=== PATIENT | female | born 1990 | race Caucasian/White ===

== ENCOUNTER → 2018-07-22 | Outpatient (CLI) | payer OTHER | END | disposition home or self-care (01) | LOC: CFH 13:45 | PROVIDERS: ATTEND Obstetrics & Gynecology | DX: Z34.02 Encounter for supervision of normal first pregnancy, second trimester (principal); N63.13 Unspecified lump in the right breast, lower outer quadrant ==

== ENCOUNTER → 2018-07-31 | Outpatient (CLI) | payer OTHER ==
[~2018-07-31] MED LIST: LIDOCAINE 1%, 20ML ONE; LIDOCAINE 1%-EPI 1:100K, 20ML ONE; PREN1TAB69 PO; SODIUM BICARBONATE 4.0%, 5ML ONE
== END | disposition home or self-care (01) ==
LOC: CFH 09:21
PROVIDERS: ATTEND Obstetrics & Gynecology
DX: D24.1 Benign neoplasm of right breast (principal)
CPT/HCPCS: 19083; 88305; J3490

== ENCOUNTER 2018-08-07 11:17 | Inpatient (IN) | payer OTHER ==
[~2018-08-07] VITALS: Ht 149.9 cm; Wt 50.0 kg
[2018-08-07] MEDS ORDERED: PREN1TAB69 PO (11:35)
[2018-08-07] MEDS ORDERED: METOCLOPRAMIDE 5 MG/ML, 2ML IVPush ONE (12:00)
[2018-08-07] MEDS ORDERED: SODIUM CITRATE/CITRIC ACID 30 ML UDC PO ONE (12:00)
[2018-08-07 12:02] LABS: BASOPHILS # (AUTO) 0.07 x10^3/uL (0-0.1); BASOPHILS % (AUTO) 1 % (0-1); EOSINOPHILS # (AUTO) 0.03 x10^3/uL (0-0.4); EOSINOPHILS % (AUTO) 0 % (1-7); LYMPHOCYTES # (AUTO) 1.61 x10^3/uL (1-3.4); LYMPHOCYTES % (AUTO) 14 % (22-44); MD NO; MEAN CORPUSCULAR HEMOGLOBIN 35.2 pg (27.0-34.8); MEAN CORPUSCULAR VOLUME 100.4 fL (80-100); MEAN PLATELET VOLUME 6.7 fL (7.4-10.4); MONOCYTES # (AUTO) 0.61 x10^3/uL (0.2-0.8); MONOCYTES % (AUTO) 5 % (2-9); NEUTROPHILS # (AUTO) 8.96 x10^3/uL (1.8-6.8); NEUTROPHILS % (AUTO) 80 % (42-75); PLATELET COUNT 343 x10^3/uL (130-400); RED BLOOD COUNT 3.39 x10^6/uL (3.82-5.3); RED CELL DISTRIBUTION WIDTH 12.4 % (9.6-15.2)
[2018-08-07] MEDS ORDERED: INDOMETHACIN 50 MG CAPSULE ONE (12:29)
[2018-08-07] MEDS ORDERED: INDOMETHACIN 50 MG CAPSULE PO SCH (12:30)
[2018-08-07] MEDS: LACTATED RINGERS 1,000 ML IV SCH ×2 (12:45→14:22)
[2018-08-07] MEDS ORDERED: MAGNESIUM SULF. PMX 20GM/500ML 500 ML IV ONE ×2 (13:44→22:26)
[2018-08-07] MEDS ORDERED: MAGNESIUM SULFATE PMX 4GM/100M 100 ML IVPB ONE (14:00)
[2018-08-07] MEDS: MAGNESIUM SULF. PMX 20GM/500ML 500 ML IV SCH ×2 (14:19→22:30)
[2018-08-07] MEDS ORDERED: INDOMETHACIN 25 MG CAPSULE ONE (19:20)
[2018-08-07] MEDS: INDOMETHACIN 25 MG CAPSULE PO SCH (19:28)
[2018-08-07] MEDS ORDERED: ONDANSETRON ODT 4 MG ONE (21:10)
[2018-08-07] MEDS: AMPICILLIN 2 GM in SODIUM CHLORIDE 0.9% 100 ML IV SCH (21:56)
[2018-08-07] MEDS ORDERED: AZITHROMYCIN 500 MG in SODIUM CHLORIDE 0.9% 250 ML IV ONE (22:00)
[2018-08-07 23:44] VITALS: BP 101/58
[2018-08-08] MEDS ORDERED: INDOMETHACIN 25 MG CAPSULE ONE ×5 (00:57→20:01)
[2018-08-08] MEDS: INDOMETHACIN 25 MG CAPSULE PO SCH ×5 (01:19→20:04)
[2018-08-08] MEDS: LACTATED RINGERS 1,000 ML IV SCH ×2 (02:05→16:28)
[2018-08-08] MEDS: AMPICILLIN 2 GM in SODIUM CHLORIDE 0.9% 100 ML IV SCH ×4 (03:36→21:57)
[2018-08-08 03:43] VITALS: BP 98/54
[2018-08-08] MEDS ORDERED: ONDANSETRON 2MG/ML, 2ML IVPush PRN (08:00)
[2018-08-08] MEDS ORDERED: METOCLOPRAMIDE 5 MG/ML, 2ML IVPush PRN (08:30)
[2018-08-08] MEDS: MAGNESIUM SULF. PMX 20GM/500ML 500 ML IV SCH ×2 (09:48→10:01)
[2018-08-08] MEDS ORDERED: MAGNESIUM SULF. PMX 20GM/500ML 500 ML IV ONE (09:59)
[2018-08-08] MEDS ORDERED: AZITHROMYCIN 500 MG in SODIUM CHLORIDE 0.9% 250 ML IV ONE (16:00)
[2018-08-08] MEDS ORDERED: FENTANYL PF 100 MCG/2ML ONE (16:16)
[2018-08-08] MEDS ORDERED: SODIUM CITRATE/CITRIC ACID 30 ML UDC ONE (16:29)
[2018-08-08] MEDS ORDERED: METOCLOPRAMIDE 5 MG/ML, 2ML ONE (16:30)
[2018-08-08] MEDS ORDERED: MIDAZOLAM 1 MG/ML, 5ML ONE (17:52)
[2018-08-08] MEDS ORDERED: DIPHENHYDRAMINE 50 MG/ML, 1ML ONE (18:42)
[2018-08-09] MEDS: LACTATED RINGERS 1,000 ML IV SCH ×3 (03:01→20:00)
[2018-08-09] MEDS: INDOMETHACIN 50 MG CAPSULE PO SCH ×3 (03:27→21:12)
[2018-08-09] MEDS: AMPICILLIN 2 GM in SODIUM CHLORIDE 0.9% 100 ML IV SCH ×4 (03:55→22:05)
[2018-08-09] MEDS ORDERED: MAGNESIUM SULF. PMX 20GM/500ML 500 ML IV ONE (05:12)
[2018-08-09] MEDS: MAGNESIUM SULF. PMX 20GM/500ML 500 ML IV SCH (05:18)
[2018-08-09] MEDS ORDERED: PRENATAL VIT/IRON/FA 1 EACH TABLET ONE (07:28)
[2018-08-09] MEDS ORDERED: DOCUSATE 100 MG CAPSULE ONE ×2 (07:28→21:10)
[2018-08-09] MEDS: DOCUSATE 100 MG CAPSULE PO SCH ×2 (08:00→21:12)
[2018-08-09] MEDS ORDERED: AZITHROMYCIN 500 MG in SODIUM CHLORIDE 0.9% 250 ML IV SCH (08:00)
[2018-08-09] MEDS: PRENATAL VIT/IRON/FA 1 EACH TABLET PO SCH (08:00)
[2018-08-09] MEDS ORDERED: INDOMETHACIN 50 MG CAPSULE ONE ×2 (12:08→21:10)
[2018-08-09] MEDS ORDERED: AZITHROMYCIN 500 MG in DEXTROSE 5% 250 ML IV SCH (17:00)
[2018-08-09] MEDS ORDERED: ACETAMINOPHEN 325 MG TABLET ONE (18:45)
[2018-08-09] MEDS ORDERED: ACETAMINOPHEN 325 MG TABLET PO PRN (19:00)
[2018-08-09 19:40] LABS: FERNING TEST FERNING NOT PRESENT (NEGATIVE)
[2018-08-10] MEDS: LACTATED RINGERS 1,000 ML IV SCH ×4 (04:00→20:00)
[2018-08-10] MEDS: AMPICILLIN 2 GM in SODIUM CHLORIDE 0.9% 100 ML IV SCH ×4 (04:16→23:27)
[2018-08-10] MEDS ORDERED: INDOMETHACIN 50 MG CAPSULE ONE ×3 (05:11→20:45)
[2018-08-10] MEDS: INDOMETHACIN 50 MG CAPSULE PO SCH ×3 (05:14→20:49)
[2018-08-10] MEDS ORDERED: PRENATAL VIT/IRON/FA 1 EACH TABLET ONE (07:19)
[2018-08-10] MEDS: PRENATAL VIT/IRON/FA 1 EACH TABLET PO SCH (07:24)
[2018-08-10] MEDS: DOCUSATE 100 MG CAPSULE PO SCH ×2 (07:31→21:00)
[2018-08-10] MEDS ORDERED: MAGNESIUM SULF. PMX 20GM/500ML 500 ML IV SCH (09:43)
[2018-08-10] MEDS ORDERED: MAGNESIUM SULF. PMX 20GM/500ML 500 ML IV ONE (10:27)
[2018-08-10] MEDS: AZITHROMYCIN 500 MG in SODIUM CHLORIDE 0.9% 250 ML IV SCH (17:12)
[2018-08-11] MEDS: AMPICILLIN 2 GM in SODIUM CHLORIDE 0.9% 100 ML IV SCH ×4 (05:27→22:00)
[2018-08-11] MEDS: DOCUSATE 100 MG CAPSULE PO SCH ×2 (09:00→21:00)
[2018-08-11] MEDS ORDERED: INDOMETHACIN 50 MG CAPSULE ONE ×2 (09:18→16:16)
[2018-08-11] MEDS ORDERED: PRENATAL VIT/IRON/FA 1 EACH TABLET ONE (09:18)
[2018-08-11] MEDS: INDOMETHACIN 50 MG CAPSULE PO SCH ×2 (09:20→16:19)
[2018-08-11] MEDS: PRENATAL VIT/IRON/FA 1 EACH TABLET PO SCH (09:20)
[2018-08-11 09:30] VITALS: BP 86/51
[2018-08-11] MEDS: AZITHROMYCIN 500 MG in SODIUM CHLORIDE 0.9% 250 ML IV SCH (17:26)
[2018-08-12] MEDS: AMPICILLIN 2 GM in SODIUM CHLORIDE 0.9% 100 ML IV SCH ×4 (04:00→22:03)
[2018-08-12 06:55] LABS: BASOPHILS # (AUTO) 0.03 x10^3/uL (0-0.1); BASOPHILS % (AUTO) 0 % (0-1); EOSINOPHILS # (AUTO) 0.07 x10^3/uL (0-0.4); EOSINOPHILS % (AUTO) 1 % (1-7); LYMPHOCYTES # (AUTO) 1.84 x10^3/uL (1-3.4); LYMPHOCYTES % (AUTO) 16 % (22-44); MD NO; MEAN CORPUSCULAR HEMOGLOBIN 33.7 pg (27.0-34.8); MEAN CORPUSCULAR HGB CONC 33.5 g/dL (32.4-35.8); MEAN CORPUSCULAR VOLUME 100.4 fL (80-100); MEAN PLATELET VOLUME 6.8 fL (7.4-10.4); MONOCYTES # (AUTO) 0.63 x10^3/uL (0.2-0.8); MONOCYTES % (AUTO) 5 % (2-9); NEUTROPHILS # (AUTO) 9.14 x10^3/uL (1.8-6.8); NEUTROPHILS % (AUTO) 78 % (42-75); PLATELET COUNT 278 x10^3/uL (130-400); RED BLOOD COUNT 3.34 x10^6/uL (3.82-5.3); RED CELL DISTRIBUTION WIDTH 12.3 % (9.6-15.2)
[2018-08-12] MEDS ORDERED: PRENATAL VIT/IRON/FA 1 EACH TABLET ONE (08:38)
[2018-08-12] MEDS: DOCUSATE 100 MG CAPSULE PO SCH ×2 (08:39→21:00)
[2018-08-12] MEDS: PRENATAL VIT/IRON/FA 1 EACH TABLET PO SCH (08:40)
[2018-08-12] MEDS: SODIUM CHLORIDE FLUSH 3ML SYRINGE IVF SCH ×2 (10:15→21:00)
[2018-08-12] MEDS: AZITHROMYCIN 500 MG in SODIUM CHLORIDE 0.9% 250 ML IV SCH (16:53)
[2018-08-12 20:30] LABS: FERNING TEST FERNING NOT PRESENT (NEGATIVE)
[2018-08-13] MEDS: AMPICILLIN 2 GM in SODIUM CHLORIDE 0.9% 100 ML IV SCH ×4 (03:59→22:00)
[2018-08-13] MEDS: DOCUSATE 100 MG CAPSULE PO SCH (09:00)
[2018-08-13] MEDS: PRENATAL VIT/IRON/FA 1 EACH TABLET PO SCH (09:00)
[2018-08-13] MEDS: SODIUM CHLORIDE FLUSH 3ML SYRINGE IVF SCH (09:00)
[2018-08-13] MEDS ORDERED: PRENATAL VIT/IRON/FA 1 EACH TABLET ONE (09:11)
[2018-08-13] MEDS ORDERED: AZITHROMYCIN 500 MG TABLET ONE (16:46)
[2018-08-13] MEDS ORDERED: AZITHROMYCIN 500 MG TABLET PO SCH (17:00)
[2018-08-13 21:00] VITALS: BP 98/56
[2018-08-14] MEDS: AMPICILLIN 2 GM in SODIUM CHLORIDE 0.9% 100 ML IV SCH ×2 (04:11→10:11)
[2018-08-14] MEDS ORDERED: PRENATAL VIT/IRON/FA 1 EACH TABLET ONE (08:22)
[2018-08-14] MEDS ORDERED: DOCUSATE 100 MG CAPSULE ONE (08:22)
[2018-08-14] MEDS: PRENATAL VIT/IRON/FA 1 EACH TABLET PO SCH (08:23)
== END 2018-08-14 15:19 | disposition home or self-care (01) | DRG 819 ==
LOC: LDOP 11:17 → OBSVTOIN 11:31 → LDIP 11:31
PROVIDERS: ADMIT Obstetrics & Gynecology; ATTEND Obstetrics & Gynecology
PROC: 0UVC7ZZ Restriction of Cervix, Via Natural or Artificial Opening (ICD-10-PCS; principal; 2018-08-08)
DX: O34.32 Maternal care for cervical incompetence, second trimester (principal); O26.872 Cervical shortening, second trimester; Z3A.19 19 weeks gestation of pregnancy
CPT/HCPCS: 36415; 83735; 84112; 85025; 86850; 86900; 89060; G0378; J0290; J0456; J2250; J2405; J3010; J7060; J1200; J2765; J3475; J7050; J7120; Q0114